=== PATIENT | female | born 1950 | race Two or more races ===

== ENCOUNTER 2017-10-14 11:05 | Outpatient (CLI) | payer OTHER | END 2017-10-14 16:03 | disposition home or self-care (01) | LOC: MAMO-SONO 11:05 | DX: Z12.31 Encounter for screening mammogram for malignant neoplasm of breast (principal); Z87.898 Personal history of other specified conditions; R92.0 Mammographic microcalcification found on diagnostic imaging of breast ==

== ENCOUNTER → 2018-04-01 | Day surgery (SDC) | payer OTHER ==
[~2018-04-01] MED LIST: ALEVE220 M1 PO; DUI500 PO; ENALAPRIL MALEA20 MG PO; LEVO-T25 MCG PO; LIPITOR20 MG PO; LOSARTAN-HCTZ1 EAC2 PO; METFORMIN HCL500 MG PO; ULTRACET PO
== END | disposition home or self-care (01) ==
LOC: ADM 03-27 13:30 → CIR.AMB 05:55
DX: S83.232A Complex tear of medial meniscus, current injury, left knee, initial encounter (principal); M94.262 Chondromalacia, left knee; M67.362 Transient synovitis, left knee; M23.42 Loose body in knee, left knee

== ENCOUNTER 2019-12-10 13:37 | Outpatient (CLI) | payer OTHER | END 2019-12-10 14:00 | disposition home or self-care (01) | LOC: MAMO-SONO 13:37 | PROVIDERS: ATTEND Internal Medicine | DX: Z12.31 Encounter for screening mammogram for malignant neoplasm of breast (principal) ==